=== PATIENT | male | born 1950 | race Caucasian/White ===

== ENCOUNTER 2016-06-02 02:54 | Emergency (ER) | payer MEDICARE, OTHER ==
[~2016-06-02] VITALS: Ht 172.7 cm; Wt 70.0 kg
[~2016-06-02 02:54] MED LIST: ASPI81CH CHEW; DILA100C PO; LISI-515 PO; PHEN50CH PO; PLAV75TA29 PO
[2016-06-02 03:00] VITALS: BP 138/79; PULSE 64; RESP 18; TEMP 97.9; O2SAT 93
[2016-06-02] MEDS ORDERED: SODIUM CHLOR 0.9% 1000 ML INJ 1,000 ML IV ONE (03:12)
[2016-06-02] MEDS ORDERED: PHENYTOIN INJ 1,000 MG in SODIUM CHLORIDE 0.9% INJ 100 ML IV ONE (03:15)
[2016-06-02] MEDS ORDERED: SODIUM CHLORIDE 0.9% FLUSH 5 ML FLUSH IVF PRN (03:15)
[2016-06-02] MEDS ORDERED: DILA100C PO (03:28)
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
[2016-06-02 04:16] LABS: ALT (GPT) 31 U/L (12-78); ANION GAP 10 MEQ/L (5-15); AST (GOT) 38 U/L (15-37); BICARBONATE 25.1 MEQ/L (21.0-32.0); BLOOD UREA NITROGEN 11 MG/DL (7-18); CHLORIDE 97 MEQ/L (98-107); GLOMERULAR FILTRATION RATE 136 ML/MIN (>89); POTASSIUM 3.2 MEQ/L (3.5-5.1); SODIUM (NA) 132 MEQ/L (136-145)
[2016-06-02 04:19] LABS: ALKALINE PHOSPHATASE 55 U/L (45-117); TOTAL BILIRUBIN ADULT 0.2 MG/DL (0.2-1.0)
[2016-06-02] MEDS ORDERED: POTASSIUM CL 40 MEQ/30 ML LIQ UDC PO ONE (04:45)
[2016-06-02 05:15] VITALS: BP 128/84; PULSE 72; RESP 18; O2SAT 96
[2016-06-02 07:07] VITALS: BP 130/76; TEMP 97.8
--- NOTE | 2016-06-02 08:21 | EKG ---
Date Performed: 06/02/2016 Time Performed: 04:55:55 PTAGE: 65 years EKG: Sinus rhythm MINIMAL VOLTAGE CRITERIA FOR LVH, CONSIDER NORMAL VARIANT POSSIBLE INFERIOR MYOCARDIAL INFARCTION AB NORMAL ECG PREVIOUS TRACING : 05/10/2016 04.10 image not available DOCTOR: Levi Hou Interpretating Date/Time 06/02/2016 08:20:26
== END 2016-06-02 07:07 | disposition home or self-care (01) ==
LOC: NEPA 02:54
DX: G40.909 Epilepsy, unspecified, not intractable, without status epilepticus (principal); I25.10 Atherosclerotic heart disease of native coronary artery without angina pectoris; F10.120 Alcohol abuse with intoxication, uncomplicated; Y90.8 Blood alcohol level of 240 mg/100 ml or more; Z72.0 Tobacco use
CPT/HCPCS: 80053; 80185; 80320; 93005; 96361; 96365; 96366; 99284; J1165; J7030